=== PATIENT | male | born 1985 | race Caucasian/White ===

== ENCOUNTER 2017-09-15 23:36 | Emergency (ER) | payer SELFPAY ==
[~2017-09-15] VITALS: Ht 188 cm; Wt 74.3 kg
[~2017-09-15 23:36] MED LIST: ADDERALL XR 2020 MG PO; ANAPROX DS550 M1 PO; BACTRIM,SEPT1 TABLET PO; CLONAZEPAM1 MG PO; FLEXERIL10 MG PO; HYDROCODON-ACE1 EAC7 PO; MOTRIN600 MG PO; ULTRAM50 MG PO
[2017-09-16] MEDS ORDERED: PERCOCET 5/31 TABLET PO (01:02)
[2017-09-16 01:54] VITALS: BP 141/86
== END 2017-09-16 01:54 | disposition home or self-care (01) ==
LOC: EME 23:36
PROC: 2W3CX1Z Immobilization of Right Lower Arm using Splint (ICD-10-PCS; principal; 2017-09-15)
DX: S62.616A Displaced fracture of proximal phalanx of right little finger, initial encounter for closed fracture (principal); W23.0XXA Caught, crushed, jammed, or pinched between moving objects, initial encounter; F17.200 Nicotine dependence, unspecified, uncomplicated
CPT/HCPCS: 73130; 99281; 99284